=== PATIENT | male | born 1985 | race Caucasian/White ===

== ENCOUNTER 2020-05-27 16:50 | Emergency (ER) | payer OTHER ==
[~2020-05-27] VITALS: Ht 180.3 cm; Wt 95.2 kg
== END 2020-05-27 21:16 | disposition left against medical advice (07) ==
LOC: ER 16:50
DX: M79.662 Pain in left lower leg (principal); M54.9 Dorsalgia, unspecified; G89.29 Other chronic pain; F17.200 Nicotine dependence, unspecified, uncomplicated; Z88.0 Allergy status to penicillin
CPT/HCPCS: 99283

== ENCOUNTER 2020-06-23 01:10 | Emergency (ER) | payer OTHER ==
[~2020-06-23] VITALS: Ht 180.3 cm; Wt 59.0 kg
== END 2020-06-23 01:20 | disposition home or self-care (01) ==
LOC: ER 01:10
DX: Z00.00 Encounter for general adult medical examination without abnormal findings (principal); Z88.0 Allergy status to penicillin; F17.200 Nicotine dependence, unspecified, uncomplicated
CPT/HCPCS: 99283

== ENCOUNTER 2020-06-23 05:19 | Emergency (ER) | payer OTHER ==
[~2020-06-23] VITALS: Ht 177.8 cm; Wt 59.0 kg
== END 2020-06-23 05:22 | disposition home or self-care (01) ==
LOC: ER 05:19
DX: Z00.00 Encounter for general adult medical examination without abnormal findings (principal); F17.210 Nicotine dependence, cigarettes, uncomplicated; Z88.0 Allergy status to penicillin
CPT/HCPCS: 99283